=== PATIENT | male | born 1990 | race Caucasian/White ===

== ENCOUNTER 2019-06-18 09:36 | Emergency (ER) | payer OTHER, SELFPAY ==
--- NOTE | 2019-06-18 09:55 | ED.GENADULT ---
HPI - General Adult General Chief complaint: Headache Stated complaint: HEADACHE/VOMITING Time Seen by Provider: 06/18/19 10:13 Source: patient Mode of arrival: ambulatory Limitations: no limitations History of Present Illness HPI narrative: 29-year-old male patient presents to the [facility] with complaints of headache and cold symptoms for the past 2 to 3 days. Patient states that he did have some alcohol on Monday night and Monday woke up with a little bit of a headache just attributed to his alcohol drinking. Patient states he has had a continuous headache since Monday and did vomit once on Monday. Patient states that he did get a flu shot this year. Patient states that he does have a at home that has recently had RSV. Patient denies any fevers ear pain, sore throat, stuffy nose, runny nose. Patient states he did have a very slight mild cough a couple of times. Denies any chest pain or shortness of breath. Patient states that he has been under some tremendous stress recently with work as well as his child being sick and now his dog recently got sick. Patient states he did have some issues with high blood pressure when he was in law school but was never medicated for. Patient states he has been taking [id number] Tylenol and Do-Spring for symptoms. Related Data Home Medications Medication Instructions Recorded Confirmed acetaminophen [Tylenol] 325 mg PO ONCE PRN 06/18/19 06/18/19 aspirin-sod bicarb-citric acid 1 tablet PO Q4-6H PRN 06/18/19 06/18/19 [Do-Spring Original] Allergies Allergy/AdvReac Type Severity Reaction Status Date / Time No Known Allergies Allergy Verified 06/18/19 10:09 Review of Systems Review of Systems: Narrative: CONSTITUTIONAL: Denies fever, chills, or sweats. EYES: Denies visual changes, redness, or discharge. ENT: Denies rhinorrhea, congestion, sore throat, or otalgia. CARDIOVASCULAR: Denies chest pain, palpitations, or edema. RESPIRATORY: Denies cough or dyspnea. GASTROINTESTINAL: Denies abdominal pain, nausea, +1 episode of vomiting, denies diarrhea. GENITOURINARY: Denies dysuria or hematuria. SKIN: Denies rash or itching. MUSCULOSKELETAL: Denies back pain, joint pain, or myalgia. NEUROLOGIC: Positive headache, numbness, or weakness. PSYCHIATRIC: Denies anxiety or depression. PMFSH Comments At the time of my signature I agree with nursing past medical history, surgical, social, and family history. There is no relevant family history pertinent to the presenting complaint. Exam Narrative: Exam Narrative: GENERAL: Well-appearing, well-nourished, and in no acute distress. HEAD: Normocephalic, atraumatic. No tenderness noted to frontal maxillary sinuses on palpation. EYES: PERRLA and EOMI. ENT: Nares with erythema and edema noted bilaterally, no rhinorrhea or epistaxis. Mucous membranes moist. Posterior pharynx with no erythema, tonsillectomy, exudates or lesions present. Bilateral TMs are clear no erythema or foreign bodies in the canal. NECK: Supple. No lymphadenopathy CHEST: Clear to auscultation. No respiratory distress. HEART: Regular rate and rhythm. No murmur heard. Normal peripheral pulses. ABDOMEN: Soft, nontender, nondistended, normal active bowel sounds. EXTREMITIES: Normal range of motion. No edema. SKIN: Warm, dry, no rash. NEURO: Alert and oriented x4, GCS 15. Cranial nerves II through XII grossly intact. No focal neurological deficits. Normal muscle strength and tone. Normal deep tendon reflexes. Negative Babinski, normal finger to nose coordination he had normal heel to jolly glide. Speech is clear. Normal gait. Negative Romberg and no pronator drift Course Reevaluation(s) Reevaluation #1: Notify patient he is negative for influenza a and B. Discussed with him that this is most likely a migraine that could be caused either from sinus congestion, stress. Discussed with him that I want him to go home and take 2 extra strength Tylenol, 800 mg ib
[2019-06-18 09:57] VITALS: BP 141/80; PULSE 96; RESP 16; TEMP 36.8; O2SAT 99
== END 2019-06-18 10:37 | disposition home or self-care (01) ==
PROVIDERS: Emergency Provider Nurse Practitioner Family
DX: G43.009 Migraine without aura, not intractable, without status migrainosus (principal)
CPT/HCPCS: 87804; 99203; G0463

== ENCOUNTER 2020-07-16 15:19 | Emergency (ER) | payer OTHER, SELFPAY ==
--- NOTE | ~2020-07-16 | XR_ITS ---
EXAMINATION: XR chest 2V 07/16/2020 16:10 INDICATION: Mid chest pain and shortness of breath PROCEDURE: 2 view chest COMPARISON: No prior studies for comparison. FINDINGS: The lungs are clear. The cardiomediastinal silhouette is within normal limits. There are no pleural effusions. There is no pneumothorax suspected. IMPRESSION: 1: NO ACUTE CARDIOPULMONARY DISEASE. Reviewed, dictated and finalized at location A. ER DEVELOPER
[2020-07-16 15:23] VITALS: BP 130/86; PULSE 98; RESP 16; TEMP 37.1; O2SAT 99
--- NOTE | 2020-07-16 15:25 | ED.CHESTPAIN ---
HPI - Chest Pain General Chief Complaint: Chest Pain Stated Complaint: chest pain/sob Time Seen by Provider: 07/16/20 15:26 Source: patient and RN notes reviewed Mode of arrival: ambulatory Limitations: no limitations History of Present Illness HPI narrative: 30-year-old male presents with concern for acute anterior chest pain. Reports 30 minutes ago while at work he felt chest pain with no precipitating factors. Reports the chest pain caused him to feel short of breath. Reports 5/10 level pain. He denies cough, recent upper respiratory infection. Denies history of Covid infection. Reports he received his first Covid vaccination 1 week ago. 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 Reports a similar history of this chest pain 1 year ago. Reports at that time he was seen by [facility] and had a work-up including a stress test which were all normal. He denies any diagnosed history of anxiety, reports however he feels that his job may be causing him to have anxiety. He reports symptoms have improved mildly since arriving at the clinic and being able to relax. Denies current shortness of breath. Denies diaphoresis, back pain, arm pain, shoulder pain, nausea. He denies recent any trauma. MD complaint: chest pain Related Data Home Medications Medication Instructions Recorded Confirmed acetaminophen [Tylenol] 325 mg PO ONCE PRN 06/18/19 06/18/19 aspirin-sod bicarb-citric acid 1 tablet PO Q4-6H PRN 06/18/19 06/18/19 [Do-Padmini Original] Allergies Allergy/AdvReac Type Severity Reaction Status Date / Time No Known Allergies Allergy Verified 06/18/19 10:09 Review of Systems Review of Systems: Narrative: CONSTITUTIONAL: Denies malaise, chills, sweats, or fever. EYES: Denies visual changes ENT: Denies rhinorrhea, congestion, sinus pain, otalgia or sore throat. CARDIOVASCULAR: Reports anterior chest pain. Denies palpitations, or edema. RESPIRATORY: Denies cough. Reports episode of dyspnea during onset of chest pain, denies current dyspnea. GASTROINTESTINAL: Denies abdominal pain, nausea, vomiting SKIN: Denies redness, bruising MUSCULOSKELETAL: Denies back pain, joint pain, or myalgia. NEUROLOGIC: Denies numbness, weakness, or headache. PSYCHIATRIC: Reports possible anxiety. Denies depression. All systems reviewed & are unremarkable except as noted in HPI and below PMFSH Comments At time of signature, agree with nursing past medical, surgical, social and family history. There is no relevant family history pertinent to the presenting complaint Exam Narrative: Exam Narrative: GENERAL: Well-appearing, well-nourished, and in no acute distress. HEAD: Normocephalic, atraumatic. EYES: PERRLA, conjunctivae clear ENT: Nares clear, turbinates pink, no rhinorrhea or epistaxis. Mucous membranes moist. TM pearly zaldivar with sharp light reflex bilaterally; no tragal tenderness. Oropharynx without erythema or lesions. Tonsils not enlarged and without exudate. NECK: Supple. No lymphadenopathy. No jugular venous distension. Carotids were easily palpable bilaterally. CHEST: No respiratory distress. Clear to auscultation. No bony deformities, no asymmetry. Speaks in full sentences. Reproducible chest pain upon sternal rub, patient reports mild pain radiates from mid sternum to the left during sternal rub HEART: Regular rate and rhythm. No murmur heard. Normal peripheral pulses. ABDOMEN: Soft, nontender, nondistended, normal active bowel sounds, no palpable masses. EXTREMITIES: No edema. SKIN: Warm, dry, no rash. NEURO: Alert and oriented x3. PSYCH: Normal mood and affect Course Course Emergency Course: Lengthy discussion with patient regarding limited diagnostic capability at the [facility], further evaluation in the emergency department. Patient discussed with his , chooses to seek further evaluation emergency department. Patient agrees to take directly to the emergency department. Portions of
--- NOTE | 2020-07-16 15:47 | ECG_ITS ---
Measurements Intervals [place] Rate: 91 P: 66 CA: 140 QRS: 88 QRSD: 87 T: 54 QT: 312 QTc: 384 Interpretive Statements SINUS RHYTHM NORMAL ECG Electronically Signed On 07-16-2020 18:49:04 GROMMET MACHINE OPERATOR by James Vogt D.O.
== END 2020-07-16 16:22 | disposition short-term general hospital (02) ==
PROVIDERS: Emergency Provider Nurse Practitioner
DX: R07.9 Chest pain, unspecified (principal)
CPT/HCPCS: 71046; 93005; 99213; G0463

== ENCOUNTER 2020-07-16 16:37 | Emergency (ER) | payer OTHER, SELFPAY ==
--- NOTE | 2020-07-16 16:39 | ECG_ITS ---
Measurements Intervals [place] Rate: 90 P: 59 [place]: 140 QRS: 82 QRSD: 89 T: 54 QT: 317 QTc: 389 Interpretive Statements SINUS RHYTHM NORMAL ECG Electronically Signed On 07-17-2020 7:02:40 PRECISION DYER by James Vogt D.O.
[2020-07-16 16:41] VITALS: BP 124/76; PULSE 93; RESP 21; TEMP 37.1; O2SAT 100
[2020-07-16 16:47] VITALS: PULSE 99
[2020-07-16 17:00] VITALS: BP 126/86; PULSE 98; RESP 16; O2SAT 99
[2020-07-16] MEDS: ASPIRIN 81 MG CHEWABLE TABLET 324 MG PO (17:10)
[2020-07-16 17:11] LABS: Basophils Absolute Auto 0.1 K/mm3 (0.0-0.1); Basophils Percent Auto 1.2 % (0.2-1.2); Eosinophils Absolute Auto 0.1 K/mm3 (0-0.3); Eosinophils Percent Auto 1.3 % (0-4.4); Hematocrit 44.3 % (42.0-52.0); Hemoglobin 15.5 g/dL (14.0-18.0); Immature Granulocyte Absolute 0.01 K/mm3 (0.00-0.031); Immature Granulocyte Percent A 0.1 % (0-0.5); Lymphocytes Absolute Auto 2.23 K/mm3 (0.9-3.2); Lymphocytes Percent Auto 26.5 % (18.3-44.2); Mean Corpuscular Hemoglobin 30.7 pg (26-34); Mean Corpuscular Volume 87.7 fl (80-100); Mean Platelet Volume 9.7 fl (7.4-10.4); Monocytes Absolute Auto 0.9 K/mm3 (0.1-0.6); Monocytes Percent Auto 10.5 % (2.6-8.5); Neutrophils Absolute Auto 5.1 K/mm3 (1.3-6.7); Neutrophils Percent Auto 60.4 % (45.5-73.1); Platelet Count Result 293 k/mm3 (150-375); Red Blood Count 5.05 M/mm3 (4.6-6.20); Red Cell Distribution Width 12.2 % (11.5-14.5); White Blood Count 8.4 K/mm3 (4.5-10.0)
--- NOTE | 2020-07-16 17:21 | ED.CHESTPAIN ---
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 Patient on arrival denying any pain currently had originally gone to urgent care patient resting comfortably on arrival in no distress. . Denies URI symptoms or other complaints Related Data Home Medications Medication Instructions Recorded Confirmed acetaminophen [Tylenol] 325 mg PO ONCE PRN 06/18/19 06/18/19 aspirin-sod bicarb-citric acid 1 tablet PO Q4-6H PRN 06/18/19 06/18/19 [Do-Padmini Original] Allergies Allergy/AdvReac Type Severity Reaction Status Date / Time No Known Allergies Allergy Verified 06/18/19 10:09 Review of Systems Review of Systems: All systems reviewed & are unremarkable except as noted in HPI and below PMFSH Social History Social History (Updated 07/16/20 @ 17:25 by Colby Springer PA-C) Tobacco type: cigars Exam Narrative: Exam Narrative: GENERAL: Well-appearing, well-nourished, and in no acute distress. HEAD: Normocephalic, atraumatic. EYES: PERRLA and EOMI. ENT: Nares clear, no rhinorrhea or epistaxis. Mucous membranes moist. Oropharynx without tonsillar hypertrophy exudate or other lesions. Bilateral TMs pearly zaldivar nonbulging NECK: Supple. No adenopathy or masses. No carotid bruits or JVD CHEST: Clear to auscultation. No respiratory distress. No wheezes rales or rhonchi HEART: Regular rate and rhythm. No murmur heard. Normal peripheral pulses. ABDOMEN: Soft, nontender, nondistended, normal active bowel sounds. EXTREMITIES: Normal range of motion. No edema. SKIN: Warm, dry, no rash. NEURO: No focal deficits. Alert and oriented x3. PSYCH: Normal mood and affect. Course Vital Signs Vital signs: Vital Signs Temperature 98.7 F 03/11/21 16:41 Pulse Rate 93 07/16/20 16:41 Respiratory Rate 21 H 07/16/20 16:41 Blood Pressure 124/76 07/16/20 16:41 Pulse Oximetry 100 07/16/20 16:41 Temperature 98.7 F 07/16/20 16:41 Pulse Rate 87 07/16/20 18:00 Respiratory Rate 16 07/16/20 18:00 Blood Pressure 127/82 07/16/20 18:00 Pulse Oximetry 98 07/16/20 18:00 MDM - Chest Pain MDM Narrative Medical decision making narrative: Patients EKGs and labs are without significant high risk changes. Cardiac risk factors were reviewed. Patient is felt likely to be low risk for ACS and reasonable for further risk stratification testing as an outpatient. Pain was not sudden or maximal in onset without tearing or ripping. quality. No other signs or symptoms to suggest aortic dissection. A low-risk Wells criteria is noted. PE is felt to be unlikely. No pneumonia or URI symptoms were seen on evaluation today. Patient is felt to b reasonable for continued evaluation as an outpatient. Lab Data Result diagrams: 07/16/20 17:04 07/16/20 17:04 Labs: Lab Results 07/16/20 07/16/20 07/16/20 Range/Units 17:04 17:04 17:04 WBC 8.4 (4.5-10.0) K/mm3 RBC 5.05 (4.6-6.20) M/mm3 Hgb 15.5 (14.0-18.0) g/dL Hct 44.3 (42.0-52.0) % MCV 87.7 (80-100) fl MCH 30.7 (26-34) pg MCHC 35.0 (32-36) g/dl RDW 12.2 (11.5-14.5) % Plt Count 293 (150-375) k/mm3 MPV 9.7 (7.4-10.4) fl Immature Gran % (Auto) 0.1 (0-0.5) % Neut % (Auto) 60.4 (45.5-73.1) % Lymph % (Auto) 26.5 (18.3-44.2) % [place] % (Auto) 10.5 H (2.6-8.5) % Eos % (Auto) 1.3 (0-4.4) % Baso % (Auto) 1.2 (0.
[2020-07-16 17:23] LABS: Anion Gap 7 mmol/L (8-16); Blood Urea Nitrogen 13 mg/dL (9-20); Calcium 8.8 mg/dL (8.4-10.2); Carbon Dioxide 27 mmol/L (22-30); Chloride 106 mmol/L (98-107); Estimated CRCL calculation 118 ml/min; Estimated Glomerular Filt Rate > 60; Glucose 89 mg/dL (75-110); Potassium 4.1 mmol/L (3.4-5.0); Prothrombin Time 13.6 Seconds (11.1-14.7); Sodium 140 mmol/L (137-145)
[2020-07-16 17:24] LABS: Partial Thromboplastin Time 30.3 SECONDS (22.3-36.8)
[2020-07-16 17:34] LABS: Troponin I < 0.012 ng/mL (0.000-0.034)
[2020-07-16 18:00] VITALS: BP 127/82; PULSE 87; RESP 16; O2SAT 98
[2020-07-16 18:16] LABS: D Dimer 0.27 ug/mL (<0.48)
[2020-07-16 19:52] LABS: Troponin I < 0.012 ng/mL (0.000-0.034)
[2020-07-16 20:21] VITALS: BP 127/73; PULSE 77; RESP 14; O2SAT 100
== END 2020-07-16 20:30 | disposition home or self-care (01) ==
PROVIDERS: Emergency Medicine Emergency Medical Services; Emergency Provider Emergency Medicine
DX: R07.9 Chest pain, unspecified (principal); F17.290 Nicotine dependence, other tobacco product, uncomplicated
CPT/HCPCS: 36415; 80048; 84484; 85025; 85380; 85610; 85730; 93005; 99284; A9270